=== PATIENT | male | born 1935 | race Caucasian/White ===

== ENCOUNTER 2021-12-22 12:44 | Inpatient (IN) | payer OTHER, SELFPAY ==
--- NOTE | ~2021-12-22 | FL_ITS ---
EXAMINATION: XR FL WITH IMAGES IN OR CLINICAL INFORMATION: Retrograde stent placement. COMPARISON: None TECHNIQUE: Fluoroscopy performed by Dr. Marc Fowler. Fluoroscopy Time: 50.8 seconds. Cumulative Dose: 14.7 mGy. Images: 4. FINDINGS: There is an area of narrowing at the left UPJ. Final image demonstrates a stent placement. FL/FL guidance in OR IMPRESSION: Fluoroscopy and spot films provided to Dr. Marc Fowler during retrograde stent placement. Please see his operative note for full details.
--- NOTE | ~2021-12-22 | XR_ITS ---
EXAMINATION: XR CHEST CLINICAL INFORMATION: Chest pain COMPARISON: 08/23/2014 TECHNIQUE: Frontal view of the chest was obtained. FINDINGS: Lung volumes are symmetric. Persistent streaky right upper lung opacity suggesting scarring. No acute consolidation is seen. No evidence of pneumothorax, pleural effusion, or pulmonary edema. The cardiomediastinal contour is unremarkable. No acute osseous findings are seen. XR/XR chest 1V IMPRESSION: No acute cardiopulmonary findings. Chronic streaky right upper lung opacity favoring scarring.
--- NOTE | ~2021-12-22 | CT_ITS ---
EXAMINATION: CT ABDOMEN AND PELVIS WITHOUT CONTRAST CLINICAL INFORMATION: Abdominal pain COMPARISON: 05/12/2016 TECHNIQUE: Multidetector volumetric imaging was performed from the lung bases through the pubic symphysis. Sagittal and coronal reformatted images were obtained on the technologist workstation. This CT examination was performed using dose optimization techniques as appropriate, variously including the following: *Automated exposure control *Adjustment of mA and/or kV according to patient size (this includes techniques or standardized protocols for targeted exams where dose is matched to indication/reason for exam; i.e. extremities or head) *Use of iterative reconstruction technique Total exam dose-length product 495 mGy-cm FINDINGS: The lack of intravenous contrast limits evaluation of the solid visceral organs including the liver, spleen, pancreas, and kidneys. LUNG BASES: There are areas of air trapping in the lung bases consistent with small airways disease. Normal heart size. Trace pericardial fluid. LIVER, GALLBLADDER, AND BILIARY TREE: Scattered hepatic cysts are again noted. No new focal lesion visible on noncontrast CT. No biliary ductal dilatation. Status post cholecystectomy. PANCREAS: Limited non-contrast evaluation is normal. No jena-pancreatic fluid. SPLEEN: Limited non-contrast evaluation is normal. ADRENAL GLANDS: Normal; no adrenal mass. KIDNEYS AND URETERS: Multiple bilateral water density renal cortical cysts are present. Most of these increased in size from the prior study 05/12/2016. For example a 3.8 cm cyst exophytic from the lateral cortex left mid kidney previously measured 3 cm. No right-sided calculi or hydronephrosis seen. 2 calcifications seen in the posterior left kidney, image 32/87 and 34/87 may be within the wall of the cyst rather than calculi. There is severe right hydroureteronephrosis with the dilated right ureter followed to a 5 mm obstructing left mid ureteral calculus at at the L4 level. GASTROINTESTINAL TRACT: Stomach and small bowel are nondilated. Normal appendix. As seen on the prior study, there is wall thickening throughout the rectosigmoid colon with subtle peripheral fluid and fat stranding. The right colon, left colon, and transverse colon are normal in appearance. ABDOMINAL WALL: Fat-containing bilateral inguinal hernias, left greater than right. LYMPH NODES: No pathologically enlarged lymph nodes in the abdomen or pelvis. VASCULAR: Circumferential calcified atherosclerotic changes of the normal caliber aorta. BLADDER: Bladder collapsed with circumferential wall thickening likely due to underdistention. PELVIC VISCERA: Mild prostatomegaly. Seminal vesicles are symmetric. OSSEOUS STRUCTURES: No acute or suspicious osseous abnormalities. CT/CT abdomen pelvis wo IV con IMPRESSION: 5 mm left mid ureteral calculus results in severe left hydroureteronephrosis. There was an obstructing left mid ureteral calculus resulting in hydroureteronephrosis on the prior study from 05/12/2016; presumably that stone passed or was removed. Again seen is wall thickening of the rectosigmoid colon with subtle adjacent fat stranding, consistent with colitis. This was also present on the prior study from 2016. Its unclear if this finding is recurrent or chronic.
[2021-12-22 12:54] VITALS: BP 132/82; PULSE 76; O2SAT 97
--- NOTE | 2021-12-22 12:56 | ECG_ITS ---
Test Reason : WEAKNESS Blood Pressure : / mmHG Vent. Rate : 079 BPM Atrial Rate : 079 BPM P-R Int : 144 ms QRS Dur : 060 ms QT Int : 370 ms P-R-T Axes : 062 036 065 degrees QTc Int : 424 ms Poor data quality Normal sinus rhythm with frequent Premature ventricular complexes Abnormal ECG When compared with ECG of 12-MAY-2016 12:45, Premature ventricular complexes are now Present Referred By: Cristobal Alejandra Electronically Signed By:CHRISTIANO ELISE MD
--- NOTE | 2021-12-22 13:07 | ED_ITS ---
HPI - General Adult General Chief complaint: General Medical Stated complaint: weakness Time Seen by Provider: 12/22/21 12:54 Source: patient and EMS Mode of arrival: EMS History of Present Illness HPI narrative: 85 yo male presented with c/o dysuria,weakness.Pt has hx of HTN and COPD, no fever no vomiting. I spoke with the son in law and he tells me that pt was at [facility] and became weak they the call an ambulance.Son in law tells me that the pt has dementia Onset (ago): day(s) (1) Radiation: non-radiation Severity: mild Quality: burning Pain Consistency: constant Relieving factors: none Exacerbating factors: none Related Data Allergies Allergy/AdvReac Type Severity Reaction Status Date / Time No Known Allergies Allergy Unverified 11/10/19 16:53 Review of Systems Cardiovascular: Cardiovascular: Denies chest pain Gastrointestinal: Gastrointestinal: Denies abdominal pain, Denies nausea and Denies vomiting Neurologic: Reports system reviewed and no additional complaints, except as documented PMFSH Past Medical History Attestation statement: The following information was validated with the patient. Social History Social History Advance Directives: Yes Advance Directives Information Provided: Yes Advance Directives on File: No Physical Exam ED Vital Signs: Vital Signs - 24 hr 12/22/21 13:10 12/22/21 14:42 Temperature 98.2 F Pulse Rate 83 Respiratory Rate 18 18 Blood Pressure 102/49 L Pulse Oximetry 94 Oxygen Delivery Method Room Air BMI result Body Mass Index 27.4 Const General: cooperative Nutritional Appearance: well nourished [facility] Head: Yes normal to inspection Ears: external ears normal Face and sinus: Yes normal facial exam Mouth: Normal oral and palatal mucosa present Eyes Conjunctivae: conjunctivae normal Neck Neck: Yes normal visual inspection, Yes full ROM and Yes no lymphadenopathy Chest Chest palpation & inspection: normal inspection of the chest Resp Effort & Inspection: normal respiratory effort Auscultation: clear to auscultation bilaterally Cardio Jugular venous distension: no JVD Rate: regular rate Rhythm: regular rhythm GI Inspection: Yes normal to inspection Palpation (GI): Soft to palpation and nontender Skin General skin exam: no rashes or lesions noted, elasticity normal and turgor normal Course Reevaluation(s) Reevaluation #1: signed out to Dr Corado off shift now UA pending ,I anticipate admission because elevated WBC ,blood culture obtained,aB started,he is not septic afebrile,normotensive,no tachycardic,no tachypneic Time: 16:15 Procedures EJ/Peripheral Line Arm R: Additional Comments: Under US guided cannulated rt basilic with 18 mikhail catheter good flash good blood return Medical Decision Making Lab Data Result diagrams: 12/22/21 14:04 12/22/21 14:04 Labs: Lab Results 12/22/21 12/22/21 12/22/21 Range/Units 14:04 14:04 14:04 WBC 20.7 H (4.8-10.8) X10*3/uL RBC 5.21 (4.60-5.80) X10*6/uL Hgb 16.5 (14.0-18.0) g/dl Hct 50.3 (42.0-52.0) % MCV 96.5 (80.0-98.0) fL MCH 31.7 (27.0-33.0) pg MCHC 32.8 (31.0-36.0) g/dl RDW 12.7 (11.0-16.0) % Plt Count 279 (160-400) X10*3/uL MPV 10.1 (9.4-12.4) fL Immature Gran % (Auto) 0.7 H (0.0-0.4) % Neut % (Auto) 89.5 H (45-73) % Lymph % (Auto) 7.0 L (20-40) % [place] % (Auto) 1.6 L (2-11) % Eos % (Auto) 1.0 (0-4) % Baso % (Auto) 0.2 (0-2) % Lymph # (Auto) 1.5 (1.2-4.9) X10*3/uL [place] # (Auto) 0.3 (0.1-1.2) X10*3/uL Eos # (Auto) 0.2 (0.0-0.4) X10*3/uL Baso # (Auto) 0.1 (0.0-0.2) X10*3/uL Abs Immat Gran (auto) 0.14 H (0.00-0.03) X10*3/uL Absolute Neuts (auto) 18.6 H (2.0-8.3) x10*3/uL Absolute Nucleated RBC 0.000 (0.0-0.012) X10*3/uL Nucleated RBC % (auto) 0.0 (0.0-0.2) /100WBC PT 12.0 (10.0-13.1) SEC INR 1.0 (0.9-1.1) APTT 29.9 (26.0-36.4) SEC Sodium 142 (135-145) mmol/L Potassium 4.3 (3.3-5.1) mmol/L Chloride 103 (96-108) mmol/L Carbon Dioxide 23 (22-29) mmol/L Anion Gap 20 (12-20) BUN 23 H (9-16) mg/dL Creatinine 1.80 H (0.5-1.4) mg/dL Estim Creat Clear Calc 26.8 Estimated GFR 36 Random Glucose 159 H (60-115) mg/dL Calcium 10.0 (8.4-10.2) mg/dL Total Bilirubin 1.1 H (0.0-1.0) mg/dL AST 25 (5-37) U/L ALT 22 (0-40) U/L Alkaline Phosphatase 117 (39-117) U/L Troponin I High Sens (<3.5-35.0) ng/L Total Protein 8.2 H (6.5-8.0) g/dL Albumin 4.9 (3.5-5.0) g/dL Urine Color Urine Appearance Urine pH (5.0-9.0) Ur Specific [place] (1.005-1.025) Urine Protein (Neg-Trace) mg/dL Urine Glucose (UA) (Negative) mg/dL Urine Ketones (Negative) mg/dL Urine Blood (Negative) Urine Nitrite (Negative) Ur Leukocyte Esterase (Negative) COVID-19 ([place]) (Negative) COVID-19 Clin Com 12/22/21 12/22/21 12/22/21 Range/Units 14:04 14:04 15:54 WBC (4.8-10.8) X10*3/uL RBC (4.60-5.80) X10*6/uL Hgb (14.0-18.0) g/dl Hct (42.0-52.0) % MCV (80.0-98.0) fL MCH (27.0-33.0) pg MCHC (31.0-36.0) g/dl RDW (11.0-16.0) % Plt Count (160-400) X10*3/uL MPV (9.4-12.4) fL Immature Gran % (Auto) (0.0-0.4) % Neut % (Auto) (45-73) % Lymph % (Auto) (20-40) % [place] % (Auto) (2-11) % Eos % (Auto) (0-4) % Baso % (Auto) (0-2) % Lymph # (Auto) (1.2-4.9) X10*3/uL [place] # (Auto) (0.1-1.2) X10*3/uL Eos # (Auto) (0.0-0.4) X10*3/uL Baso # (Auto) (0.0-0.2) X10*3/uL Abs Immat Gran (auto) (0.00-0.03) X10*3/uL Absolute Neuts (auto) (2.0-8.3) x10*3/uL Absolute Nucleated RBC (0.0-0.012) X10*3/uL Nucleated RBC % (auto) (0.0-0.2) /100WBC PT (10.0-13.1) SEC INR (0.9-1.1) APTT (26.0-36.4) SEC Sodium (135-145) mmol/L Potassium (3.3-5.1) mmol/L Chloride (96-108) mmol/L Carbon Dioxide (22-29) mmol/L Anion Gap (12-20) BUN (9-16) mg/dL Creatinine (0.5-1.4) mg/dL Estim Creat Clear Calc Estimated GFR Random Glucose (60-115) mg/dL Calcium (8.4-10.2) mg/dL Total Bilirubin (0.0-1.0) mg/dL AST (5-37) U/L ALT (0-40) U/L Alkaline Phosphatase (39-117) U/L Troponin I High Sens 6.1 (<3.5-35.0) ng/L Total Protein (6.5-8.0) g/dL Albumin (3.5-5.0) g/dL Urine Color Brown A Urine Appearance Cloudy Urine pH 6.0 (5.0-9.0) Ur Specific [place] 1.015 (1.005-1.025) Urine Protein 100 (2+) H (Neg-Trace) mg/dL Urine Glucose (UA) Negative (Negative) mg/dL Urine Ketones Trace (Negative) mg/dL Urine Blood Moderate (2+) H (Negative) Urine Nitrite Negative (Negative) Ur Leukocyte Esterase Small (1+) H (Negative) COVID-19 ([place]) Negative (Negative) COVID-19 Clin Com See Note Discharge Plan Discharge Clinical Impression: Weakness, Leukocytosis Patient Disposition: Still a Patient
[2021-12-22 13:10] VITALS: RESP 18; BMI 27.4
--- NOTE | 2021-12-22 13:20 | PC.NURSE ---
Pt yoruba speaking. Upon arrival requesting to use bathroom. Incontinent of urine. On commode having large bowel movement of loose stools.
[2021-12-22] MEDS: 0.9 % Sodium Chloride 1,000 ML 999 ML IVCONT ×2 (14:07→16:04)
[2021-12-22 14:14] LABS: MANUAL DIFF FLAG NO
[2021-12-22 14:15] LABS: Basophils Absolute Auto 0.1 X10*3/uL (0.0-0.2); Basophils Percent Auto 0.2 % (0-2); Eosinophils Absolute Auto 0.2 X10*3/uL (0.0-0.4); Hematocrit 50.3 % (42.0-52.0); Hemoglobin 16.5 g/dl (14.0-18.0); Imm Gran Abs Auto 0.14 X10*3/uL (0.00-0.03); Imm Gran Pct Auto 0.7 % (0.0-0.4); Lymphocytes Absolute Auto 1.5 X10*3/uL (1.2-4.9); Mean Corpuscular HGB Conc 32.8 g/dl (31.0-36.0); Mean Corpuscular Hemoglobin 31.7 pg (27.0-33.0); Mean Corpuscular Volume 96.5 fL (80.0-98.0); Mean Platelet Volume 10.1 fL (9.4-12.4); Monocytes Absolute Auto 0.3 X10*3/uL (0.1-1.2); Monocytes Percent Auto 1.6 % (2-11); Neutrophils Absolute Auto 18.6 x10*3/uL (2.0-8.3); Neutrophils Percent Auto 89.5 % (45-73); Platelet Count 279 X10*3/uL (160-400); Red Blood Count 5.21 X10*6/uL (4.60-5.80); Red Cell Distribution Width 12.7 % (11.0-16.0); White Blood Count 20.7 X10*3/uL (4.8-10.8)
[2021-12-22 14:23] LABS: Partial Thromboplastin Time 29.9 SEC (26.0-36.4)
[2021-12-22 14:28] LABS: COVID-19 Test Negative (Negative); IDNOW Serial# 16C4AD1C
[2021-12-22 14:36] LABS: Alanine Aminotransferase 22 U/L (0-40); Albumin Level 4.9 g/dL (3.5-5.0); Alkaline Phosphatase 117 U/L (39-117); Anion Gap 20 (12-20); Aspartate Amino Transferase 25 U/L (5-37); Bilirubin Total 1.1 mg/dL (0.0-1.0); Blood Urea Nitrogen 23 mg/dL (9-16); Carbon Dioxide 23 mmol/L (22-29); Chloride 103 mmol/L (96-108); Creatinine Clr Calc Pharmacy 26.8; Estimated Glomerular Filt Rate 36; Glucose Random 159 mg/dL (60-115); Potassium 4.3 mmol/L (3.3-5.1); Sodium 142 mmol/L (135-145); Total Protein 8.2 g/dL (6.5-8.0)
[2021-12-22 14:42] VITALS: BP 102/49; PULSE 83; RESP 18; TEMP 36.8; O2SAT 94
[2021-12-22 14:42] LABS: Troponin-I High Sensitivity 6.1 ng/L (<3.5-35.0)
[2021-12-22 16:05] LABS: Appearance Urine Cloudy; Glucose Urine UA Negative (Negative); Leukocyte Esterase Urine Small (1+) (Negative); Nitrite Urine Negative (Negative); Specific Gravity - Urine 1.015 (1.005-1.025); UMIC TRIGGER UACC YES; Urine Blood Moderate (2+) (Negative); Urine Ketones Trace mg/dL (Negative); Urine Protein 100 (2+) mg/dL (Neg-Trace)
[2021-12-22 16:10] LABS: Color Urine Brown
[2021-12-22 16:18] VITALS: BP 128/57; PULSE 80; RESP 20; TEMP 37; O2SAT 95
[2021-12-22 16:20] LABS: Bacteria Urine None Seen (None Seen); RBC Urine >20 /HPF (0-2); Squamous Epithelial Cell Urine 0-2 /HPF (0-2); UACC Culture Trigger YES
--- NOTE | 2021-12-22 16:25 | PC.NURSE ---
Pt continues to be incontinent of stool. Second liter hung, blood cultures and lactic acid obtained. Pt placed on the monitor NSR at 75. Urine sample obtained via straight catheter. Urine dark ish colored. Daughter at bedside
[2021-12-22 16:30] LABS: Lactic Acid 1.5 mmol/L (0.5-2.0)
--- NOTE | 2021-12-22 17:16 | P.HPHOSP_ITS ---
History of Present Illness Date of Service: 12/22/21 Chief Complaint: weakness 85M with PMH advanced alzheimer's dementia, copd, HTN, nephrolithiasis, chronic diastolic chf, presented with weakness. at baseline, patient is dependent in most ADLs, poor memory and insight. daughter states patient was at baseline AM of admission, then later on during the day he was noticed to be fatigued and weak appearing, visiting nurse reported low BP (not quantified). in ED patient's sBP 102. noted to have ESTUARDO, leukocytosis, positive UA, and CT abd showed 5mm left ureteral stone with hydro. patient denies pain, fever, chills. Review of Systems Review of Systems: Constitutional: Denies fever, denies Chills Eyes: denies blurry vision ENT: denies sore throat CVS: denies chest pain Respiratory: Denies dyspnea GI: no abdominal pain : denies dysuria MSK: denies neck pain Skin: denies rash Neuro: denies specific motor weakness Psych: denies suicidal ideation Endocrine: denies heat/cold intolerance Hematologic: denies easy bleeding Allergy: denies hives [facility] Medical History Alzheimer's dementia Chronic diastolic CHF (congestive heart failure) COPD (chronic obstructive pulmonary disease) History of CVA (cerebrovascular accident) Hypertension Nephrolithiasis Family History Other No family history of cardiac disease Surgical History S/P cholecystectomy Social History (Updated 12/22/21 @ 17:20 by Dominick Santos MD) Alcohol intake: never Patient Tobacco Use Status: Former Tobacco user Use of substances other than those prescribed or required for medical reasons: No Advance Directives: Yes Advance Directives Information Provided: Yes Advance Directives on File: No Meds Allergies Allergy/AdvReac Type Severity Reaction Status Date / Time No Known Allergies Allergy Unverified 11/10/19 16:53 Active Medications: Current Medications Ceftriaxone Sodium 1 gm/ (Sodium Chloride) 50 mls @ 100 mls/hr IV Q24H [facility] Lactated Ringer's (Lr) 1,000 mls @ 80 mls/hr IVCONT .[id number] [facility] Pharmacy Consult (Consult Rx Perform Med Rec) 1 each MISCELLANE ONCE PRN PRN Reason: Consult order Physical Exam Vital Signs and Narrative: Vital Signs: Last Vital Signs Temp 98.6 F 12/22/21 16:18 Pulse 80 12/22/21 16:18 Resp 20 12/22/21 16:18 BP 128/57 L 12/22/21 16:18 Pulse Ox 95 12/22/21 16:18 O2 Del Method 12/22/21 16:18 BMI result Body Mass Index 27.4 General: no acute distress, frail appearing HEENT: atraumatic Neck: normal to visual inspection CVS: S1, S2, RRR Resp: CTA bilateral Chest: non tender GI: soft, non tender, non distended : no CVA tenderness Skin: no rashes Extremities: no edema Neuro: Oriented X1, grossly intact Psych: cooperative, impaired insight Results Labs CBC and Chem 7: 12/22/21 14:04 12/22/21 14:04 Labs: Laboratory Results - last 24 hr 12/22/21 12/22/21 12/22/21 14:04 14:04 14:04 MCV 96.5 MCH 31.7 MCHC 32.8 RDW 12.7 Plt Count 279 MPV 10.1 Immature Gran % (Auto) 0.7 H Neut % (Auto) 89.5 H Lymph % (Auto) 7.0 L [place] % (Auto) 1.6 L Eos % (Auto) 1.0 Baso % (Auto) 0.2 Lymph # (Auto) 1.5 [place] # (Auto) 0.3 Eos # (Auto) 0.2 Baso # (Auto) 0.1 Abs Immat Gran (auto) 0.14 H Absolute Neuts (auto) 18.6 H Absolute Nucleated RBC 0.000 Nucleated RBC % (auto) 0.0 PT 12.0 INR 1.0 APTT 29.9 Anion Gap 20 Estim Creat Clear Calc 26.8 Estimated GFR 36 Random Glucose 159 H Lactic Acid Calcium 10.0 Total Bilirubin 1.1 H AST 25 ALT 22 Alkaline Phosphatase 117 Troponin I High Sens Total Protein 8.2 H Albumin 4.9 Urine Color Urine Appearance Urine pH Ur Specific [place] Urine Protein Urine Glucose (UA) Urine Ketones Urine Blood Urine Nitrite Ur Leukocyte Esterase Urine RBC Urine WBC Ur Squamous Epith Cells Urine Bacteria Hyaline Casts COVID-19 ([place]) COVID-19 Clin Com 12/22/21 12/22/21 12/22/21 14:04 14:04 15:54 MCV MCH MCHC RDW Plt Count MPV Immature Gran % (Auto) Neut % (Auto) Lymph % (Auto) [place] % (Auto) Eos % (Auto) Baso % (Auto) Lymph # (Auto) [place] # (Auto) Eos # (Auto) Baso # (Auto) Abs Immat Gran (auto) Absolute Neuts (auto) Absolute Nucleated RBC Nucleated RBC % (auto) PT INR APTT Anion Gap Estim Creat Clear Calc Estimated GFR Random Glucose Lactic Acid Calcium Total Bilirubin AST ALT Alkaline Phosphatase Troponin I High Sens 6.1 Total Protein Albumin Urine Color Brown A Urine Appearance Cloudy Urine pH 6.0 Ur Specific [place] 1.015 Urine Protein 100 (2+) H Urine Glucose (UA) Negative Urine Ketones Trace Urine Blood Moderate (2+) H Urine Nitrite Negative Ur Leukocyte Esterase Small (1+) H Urine RBC >20 H Urine WBC 6-10 H Ur Squamous Epith Cells 0-2 Urine Bacteria None Seen Hyaline Casts - COVID-19 ([place]) Negative COVID-19 Clin Com See Note 12/22/21 16:11 MCV MCH MCHC RDW Plt Count MPV Immature Gran % (Auto) Neut % (Auto) Lymph % (Auto) [place] % (Auto) Eos % (Auto) Baso % (Auto) Lymph # (Auto) [place] # (Auto) Eos # (Auto) Baso # (Auto) Abs Immat Gran (auto) Absolute Neuts (auto) Absolute Nucleated RBC Nucleated RBC % (auto) PT INR APTT Anion Gap Estim Creat Clear Calc Estimated GFR Random Glucose Lactic Acid 1.5 Calcium Total Bilirubin AST ALT Alkaline Phosphatase Troponin I High Sens Total Protein Albumin Urine Color Urine Appearance Urine pH Ur Specific [place] Urine Protein Urine Glucose (UA) Urine Ketones Urine Blood Urine Nitrite Ur Leukocyte Esterase Urine RBC Urine WBC Ur Squamous Epith Cells Urine Bacteria Hyaline Casts COVID-19 ([place]) COVID-19 Clin Com Imaging Radiologist's Impressions: Impressions Abdomen/Pelvis CT 12/22/21 15:32 IMPRESSION: 5 mm left mid ureteral calculus results in severe left hydroureteronephrosis. There was an obstructing left mid ureteral calculus resulting in hydroureteronephrosis on the prior study from 05/12/2016; presumably that stone passed or was removed. Again seen is wall thickening of the rectosigmoid colon with subtle adjacent fat stranding, consistent with colitis. This was also present on the prior study from 2017. Its unclear if this finding is recurrent or chronic. Chest X-Ray 12/22/21 15:35 IMPRESSION: No acute cardiopulmonary findings. Chronic streaky right upper lung opacity favoring scarring. Assessment and Plan (1) Alzheimer's dementia: Status: Acute Plan 85M with PMH advanced alzheimer's dementia, copd, HTN, nephrolithiasis, chronic diastolic chf, presented with weakness found to have obstructing stone with ESTUARDO. obstructing left ureteral stone complicated by ESTUARDO IVF, npo after midnight for cystoscopy 12/23 ESTUARDO pre and post renal hold bp meds IVF monitor plan for cysto HTN hold meds for relative hypotension COPD stable advanced alzheimer's dementia at baseline chronic diastolic chf appears hypovolemic, cautious hydration dvt prophylaxis - heparin DNR/DNI patient With obstructing stone leading to acute kidney injury requiring IV fluids, with risk for decompensation due to advanced age, frailty, therefore expected to require at least 2 midnights in the hospital. Quality Stroke Does the patient have a stroke diagnosis?: No VTE Prior VTE?: No VTE Risk Level:: Medical - moderate - high VTE Device Contraindication: Treatment Not Indicated VTE Drug Contraindication: N/A - Med Ordered
[2021-12-22] MEDS: cefEPime HCl 2 GM in 0.9 % Sodium Chloride 50 ML IV (18:01)
--- NOTE | 2021-12-22 18:41 | PHA.MEDREC ---
Pharmacy Consult ? Medication Reconciliation Pharmacy has completed the medication reconciliation. Patient's daughter confirmed medications. Annika Villegas, JavierD
[2021-12-22] MEDS: Heparin Sodium,Porcine 5,000 UNIT/ML VIAL 5000 UNIT SUBCUT (18:56)
[2021-12-22] MEDS: Lactated Ringers 1,000 ML 80 ML IVCONT (20:27)
[2021-12-22 21:22] VITALS: BP 127/95; PULSE 77; RESP 16; TEMP 36.9; O2SAT 97
[2021-12-23] VITALS (13 sets, daily range): BP systolic 114–161; BP diastolic 51–104; PULSE 53–86; RESP 13–19; TEMP 36.2–37.8; O2SAT 94–99; BMI 22.8; BMI 49.9
--- NOTE | 2021-12-23 | ECG_ITS ---
Test Reason : postop Blood Pressure : / mmHG Vent. Rate : 081 BPM Atrial Rate : 081 BPM P-R Int : 152 ms QRS Dur : 064 ms QT Int : 382 ms P-R-T Axes : 063 050 056 degrees QTc Int : 443 ms Sinus rhythm with frequent Premature ventricular complexes in a pattern of bigeminy Nonspecific ST abnormality Abnormal ECG When compared with ECG of 22-DEC-2021 13:53, Premature ventricular complexes are now more frequent Referred By: Marisel Bedoya Electronically Signed By:CHRISTIANO ELISE MD
[2021-12-23] MEDS: 0.9 % Sodium Chloride Flush 3 ML SYRINGE IVFLUSH ×3 (02:23→17:51)
[2021-12-23] MEDS: Heparin Sodium,Porcine 5,000 UNIT/ML VIAL 5000 UNIT SUBCUT ×2 (02:23→17:45)
--- NOTE | 2021-12-23 02:59 | PC.NURSE ---
Pts IV leaked on bed changed bed sheet, pad and Ashish. Emptied urinal.
--- NOTE | 2021-12-23 03:48 | PC.NURSE ---
Called report to [facility]
[2021-12-23] MEDS: Lactated Ringers 1,000 ML 80 ML IVCONT ×2 (04:37→17:44)
[2021-12-23] MEDS: cefTRIAXone sodium 1 GM in 0.9 % Sodium Chloride 50 ML IV (07:37)
[2021-12-23 07:46] LABS: Hematocrit 39.5 % (42.0-52.0); Hemoglobin 13.2 g/dl (14.0-18.0); Mean Corpuscular HGB Conc 33.4 g/dl (31.0-36.0); Mean Corpuscular Volume 95.6 fL (80.0-98.0); Mean Platelet Volume 10.2 fL (9.4-12.4); Platelet Count 193 X10*3/uL (160-400); Red Blood Count 4.13 X10*6/uL (4.60-5.80); Red Cell Distribution Width 12.7 % (11.0-16.0); White Blood Count 12.9 X10*3/uL (4.8-10.8)
[2021-12-23 08:01] LABS: Anion Gap 11 (12-20); Blood Urea Nitrogen 18 mg/dL (9-16); Calcium 8.8 mg/dL (8.4-10.2); Carbon Dioxide 24 mmol/L (22-29); Chloride 108 mmol/L (96-108); Creatinine Clr Calc Pharmacy 43.1; Estimated Glomerular Filt Rate > 60; Glucose Fasting 89 mg/dL (60-99); Potassium 4.1 mmol/L (3.3-5.1); Sodium 139 mmol/L (135-145)
[2021-12-23] MEDS: amLODIPine Besylate 10 MG TABLET PO (08:50)
--- NOTE | 2021-12-23 09:56 | HO.PM.IMPN ---
Subjective Subjective Date of Service: 12/23/21 Interval History: cc: weakness interval history: a bit better Cardiovascular Cardiovascular: Reports no additional cardiovascular complaints Respiratory Respiratory: Reports no additional respiratory complaints Physical Exam Vital Signs: Vital Signs: Last Vital Signs Temp 99.1 F 12/23/21 08:00 Pulse 78 12/23/21 08:00 Resp 16 12/23/21 08:00 BP 149/72 H 12/23/21 08:00 Pulse Ox 96 12/23/21 08:00 O2 Del Method 12/23/21 08:00 BMI result Body Mass Index 22.8 General: AO X 1, no acute distress Resp: CTA bilateral, no accessory muscles used CVS: S1,S2,RRR GI: soft, non tender, non distended Neuro: motor grossly intact, alert Psych: appropriate affect, impaired insight Objective Data Active Medications Acetaminophen (Acetaminophen 325 Mg Tablet) 650 mg PO Q6H PRN PRN Reason: Pain, Mild (Pain Scale 1-3) Amlodipine Besylate (Amlodipine Besylate 10 Mg Tablet) 10 mg PO DAILY REPLACED BY [facility]; Protocol Last Admin: 12/23/21 08:50 Dose: 10 mg Documented By: CHRISTINA Heparin Sodium (Porcine) (Heparin Sodium,Porcine 5,000 Unit/Ml Vial) 5,000 unit SUBCUT Q8H REPLACED BY [facility] Last Admin: 12/23/21 08:49 Dose: Not Given Documented By: CHRISTINA Non-Admin Reason: preop Ceftriaxone Sodium 1 gm/ (Sodium Chloride) 50 mls @ 100 mls/hr IV Q24H REPLACED BY [facility] Last Infusion: 12/23/21 08:53 Dose: 0 mls/hr Documented By: CHRISTINA Lactated Ringer's (Lr) 1,000 mls @ 80 mls/hr IVCONT .[id number] REPLACED BY [facility] Last Admin: 12/23/21 04:37 Dose: 80 mls/hr Documented By: SHAMA Pharmacy Consult (Consult Rx Perform Med Rec) 1 each MISCELLANE ONCE PRN PRN Reason: Consult order Sodium Chloride (0.9 % Sodium Chloride Flush 3 Ml Syringe) 3 ml IVFLUSH QSHIFT REPLACED BY [facility] Last Admin: 12/23/21 07:38 Dose: 3 ml Documented By: CHRISTINA Labs CBC & Chem 7: 12/23/21 07:35 12/23/21 07:35 Labs: Laboratory Results - last 24 hr 12/22/21 12/22/21 12/22/21 14:04 14:04 14:04 MCV 96.5 MCH 31.7 MCHC 32.8 RDW 12.7 Plt Count 279 MPV 10.1 Immature Gran % (Auto) 0.7 H Neut % (Auto) 89.5 H Lymph % (Auto) 7.0 L [place] % (Auto) 1.6 L Eos % (Auto) 1.0 Baso % (Auto) 0.2 Lymph # (Auto) 1.5 [place] # (Auto) 0.3 Eos # (Auto) 0.2 Baso # (Auto) 0.1 Abs Immat Gran (auto) 0.14 H Absolute Neuts (auto) 18.6 H Absolute Nucleated RBC 0.000 Nucleated RBC % (auto) 0.0 PT 12.0 INR 1.0 APTT 29.9 Anion Gap 20 Estim Creat Clear Calc 26.8 Estimated GFR 36 Random Glucose 159 H Fasting Glucose Lactic Acid Calcium 10.0 Total Bilirubin 1.1 H AST 25 ALT 22 Alkaline Phosphatase 117 Troponin I High Sens Total Protein 8.2 H Albumin 4.9 Urine Color Urine Appearance Urine pH Ur Specific [place] Urine Protein Urine Glucose (UA) Urine Ketones Urine Blood Urine Nitrite Ur Leukocyte Esterase Urine RBC Urine WBC Ur Squamous Epith Cells Urine Bacteria Hyaline Casts COVID-19 ([place]) COVID-19 Clin Com 12/22/21 12/22/21 12/22/21 14:04 14:04 15:54 MCV MCH MCHC RDW Plt Count MPV Immature Gran % (Auto) Neut % (Auto) Lymph % (Auto) [place] % (Auto) Eos % (Auto) Baso % (Auto) Lymph # (Auto) [place] # (Auto) Eos # (Auto) Baso # (Auto) Abs Immat Gran (auto) Absolute Neuts (auto) Absolute Nucleated RBC Nucleated RBC % (auto) PT INR APTT Anion Gap Estim Creat Clear Calc Estimated GFR Random Glucose Fasting Glucose Lactic Acid Calcium Total Bilirubin AST ALT Alkaline Phosphatase Troponin I High Sens 6.1 Total Protein Albumin Urine Color Brown A Urine Appearance Cloudy Urine pH 6.0 Ur Specific [place] 1.015 Urine Protein 100 (2+) H Urine Glucose (UA) Negative Urine Ketones Trace Urine Blood Moderate (2+) H Urine Nitrite Negative Ur Leukocyte Esterase Small (1+) H Urine RBC >20 H Urine WBC 6-10 H Ur Squamous Epith Cells 0-2 Urine Bacteria None Seen Hyaline Casts 11-20 COVID-19 ([place]) Negative COVID-19 Clin Com See Note 12/22/21 12/23/21 12/23/21 16:11 07:35 07:35 MCV 95.6 MCH 32.0 MCHC 33.4 RDW 12.7 Plt Count 193 D MPV 10.2 Immature Gran % (Auto) Neut % (Auto) Lymph % (Auto) [place] % (Auto) Eos % (Auto) Baso % (Auto) Lymph # (Auto) [place] # (Auto) Eos # (Auto) Baso # (Auto) Abs Immat Gran (auto) Absolute Neuts (auto) Absolute Nucleated RBC 0.000 Nucleated RBC % (auto) 0.0 PT INR APTT Anion Gap 11 L Estim Creat Clear Calc 43.1 Estimated GFR > 60 Random Glucose Fasting Glucose 89 Lactic Acid 1.5 Calcium 8.8 D Total Bilirubin AST ALT Alkaline Phosphatase Troponin I High Sens Total Protein Albumin Urine Color Urine Appearance Urine pH Ur Specific [place] Urine Protein Urine Glucose (UA) Urine Ketones Urine Blood Urine Nitrite Ur Leukocyte Esterase Urine RBC Urine WBC Ur Squamous Epith Cells Urine Bacteria Hyaline Casts COVID-19 ([place]) COVID-19 Clin Com Assessment and Plan (1) Alzheimer's dementia: Status: Acute Plan 85M with PMH advanced alzheimer's dementia, copd, HTN, nephrolithiasis, chronic diastolic chf, presented with weakness found to have obstructing stone with ESTUARDO. obstructing left ureteral stone complicated by ESTUARDO IVF, for cystoscopy today, 12/23 ESTUARDO pre and post renal improving continue IVF monitor plan for cysto HTN holding acei, will restart amlodipine COPD stable advanced alzheimer's dementia at baseline chronic diastolic chf appears hypovolemic, cautious hydration dvt prophylaxis - heparin DNR/DNI reason for continued hospitalization:ivf, cysto planned Quality Stroke Does the patient have a stroke diagnosis?: No VTE Prior VTE?: No VTE Risk Level:: Medical - moderate - high VTE Device Contraindication: Treatment Not Indicated VTE Drug Contraindication: N/A - Med Ordered
--- NOTE | 2021-12-23 11:26 | P.CNUR_ITS ---
History of Present Illness Consult details Consult date: 12/23/21 Narrative: Consulting complaint This is an 85-year-old Romanian-speaking male. Was brought to the emergency room after buddhist yesterday. Found to have UTI with leukocytosis. Had generalized weakness. Presenting WBC 20.7, creatinine 1.8 These have started to resolve with hydration and IV antibiotics Culture is pending. There is severe left hydroureteronephrosis with the dilated left ureter followed to a 5 mm obstructing left mid ureteral calculus at at the L4 level Recommend cystoscopy, left retrograde, left stent placement Discussed with family who are Romanian speakers Review of Systems Constitutional: Constitutional: Reports as per HPI and Reports no additional constitutional complaints Cardiovascular: Cardiovascular: Reports as per HPI and Reports no additional cardiovascular complaints Respiratory: Respiratory: Reports as per HPI and Reports no additional respiratory complaints Gastrointestinal: Gastrointestinal: Reports as per HPI and Reports no additional gastrointestinal complaints Genitourinary: Genitourinary: Reports as per HPI Musculoskeletal: Musculoskeletal: Reports no additional musculoskeletal complaints and Reports as per HPI Neurologic: Reports system reviewed and no additional complaints, except as documented and Reports as per HPI PMFSH Past Medical History Medical History Alzheimer's dementia Chronic diastolic CHF (congestive heart failure) COPD (chronic obstructive pulmonary disease) History of CVA (cerebrovascular accident) Hypertension Nephrolithiasis Family History Family History Other No family history of cardiac disease Surgical History Surgical History S/P cholecystectomy Social History Social History (Updated 12/22/21 @ 17:20 by Dominick Santos MD) Household Members: Family Housing: House Do you presently have visiting nurse or other home services: No Alcohol intake: never Patient Tobacco Use Status: Former Tobacco user Second Hand Smoke Exposure: No Advance Directives Date on File: 12/23/21 Meds Allergies Allergy/AdvReac Type Severity Reaction Status Date / Time No Known Allergies Allergy Verified 12/23/21 10:41 Active Medications: Current Medications Acetaminophen (Acetaminophen 325 Mg Tablet) 650 mg PO Q6H PRN PRN Reason: Pain, Mild (Pain Scale 1-3) Amlodipine Besylate (Amlodipine Besylate 10 Mg Tablet) 10 mg PO DAILY [facility]; Protocol Last Admin: 12/23/21 08:50 Dose: 10 mg Heparin Sodium (Porcine) (Heparin Sodium,Porcine 5,000 Unit/Ml Vial) 5,000 unit SUBCUT Q8H [facility] Last Admin: 12/23/21 08:49 Dose: Not Given Ceftriaxone Sodium 1 gm/ (Sodium Chloride) 50 mls @ 100 mls/hr IV Q24H [facility] Last Infusion: 12/23/21 08:53 Dose: Infused Lactated Ringer's (Lr) 1,000 mls @ 80 mls/hr IVCONT .[id number] [facility] Last Admin: 12/23/21 04:37 Dose: 80 mls/hr Pharmacy Consult (Consult Rx Perform Med Rec) 1 each MISCELLANE ONCE PRN PRN Reason: Consult order Sodium Chloride (0.9 % Sodium Chloride Flush 3 Ml Syringe) 3 ml IVFLUSH QSHIFT [facility] Last Admin: 12/23/21 07:38 Dose: 3 ml Home Medications Medication Instructions Recorded Confirmed Last Taken Type amlodipine 10 mg tablet 1 tab PO DAILY 12/22/21 12/22/21 12/21/21 History lisinopril 5 mg tablet 1 tab PO DAILY 12/22/21 12/22/21 12/21/21 History melatonin 5 mg tablet 1 tab PO BEDTIME PRN Sleep 12/22/21 12/22/21 Unknown Hist ory Physical Exam Vital Signs: Vital Signs: Last Vital Signs Temp 99.1 F 12/23/21 08:00 Pulse 78 12/23/21 08:00 Resp 16 12/23/21 08:00 BP 149/72 H 12/23/21 08:00 Pulse Ox 96 12/23/21 08:00 O2 Del Method 12/23/21 08:00 BMI result Body Mass Index 22.8 Const: General: cooperative, healthy appearing, comfortable and no acute distress Orientation/consciousness: patient oriented x3 HEENT: Face and sinus: Yes normal facial exam Mouth: moist mucous membranes Neck: Neck: Yes normal visual inspection, Yes full ROM and Yes trachea midline Chest: Chest palpation & inspection: normal inspection of the chest Resp: Effort & Inspection: normal respiratory effort, able to speak in complet e sentences and no respiratory distress GI: Inspection: Yes normal to inspection Back/Spine/Pelvis: Cervical Spine: normal cervical lordosis Thoracic/Lumbar Spine: thoracic and lumbar spine normal to inspection Skin: General skin exam: no rashes or lesions noted Neuro: General: patient oriented x3, tone normal and moves all extremities Extrem: General: Yes normal to inspection and Yes capillary refill normal Results Labs Result diagrams: 12/23/21 07:35 12/23/21 07:35 Labs: Abnormal lab results 12/22/21 12/22/21 12/22/21 Range/Units 14:04 14:04 15:54 WBC 20.7 H (4.8-10.8) X10*3/uL RBC (4.60-5.80) X10*6/uL Hgb (14.0-18.0) g/dl Hct (42.0-52.0) % Immature Gran % (Auto) 0.7 H (0.0-0.4) % Neut % (Auto) 89.5 H (45-73) % Lymph % (Auto) 7.0 L (20-40) % [place] % (Auto) 1.6 L (2-11) % Abs Immat Gran (auto) 0.14 H (0.00-0.03) X10*3/uL Absolute Neuts (auto) 18.6 H (2.0-8.3) x10*3/uL Anion Gap (12-20) BUN 23 H (9-16) mg/dL Creatinine 1.80 H (0.5-1.4) mg/dL Random Glucose 159 H (60-115) mg/dL Total Bilirubin 1.1 H (0.0-1.0) mg/dL Total Protein 8.2 H (6.5-8.0) g/dL Urine Color Brown A Urine Protein 100 (2+) H (Neg-Trace) mg/dL Urine Blood Moderate (2+) H (Negative) Ur Leukocyte Esterase Small (1+) H (Negative) Urine RBC >20 H (0-2) /HPF Urine WBC 6-10 H (0-5) /HPF 12/23/21 12/23/21 Range/Units 07:35 07:35 WBC 12.9 H (4.8-10.8) X10*3/uL RBC 4.13 L D (4.60-5.80) X10*6/uL Hgb 13.2 L (14.0-18.0) g/dl Hct 39.5 L D (42.0-52.0) % Immature Gran % (Auto) (0.0-0.4) % Neut % (Auto) (45-73) % Lymph % (Auto) (20-40) % [place] % (Auto) (2-11) % Abs Immat Gran (auto) (0.00-0.03) X10*3/uL Absolute Neuts (auto) (2.0-8.3) x10*3/uL Anion Gap 11 L (12-20) BUN 18 H (9-16) mg/dL Creatinine (0.5-1.4) mg/dL Random Glucose (60-115) mg/dL Total Bilirubin (0.0-1.0) mg/dL Total Protein (6.5-8.0) g/dL Urine Color Urine Protein (Neg-Trace) mg/dL Urine Blood (Negative) Ur Leukocyte Esterase (Negative) Urine RBC (0-2) /HPF Urine WBC (0-5) /HPF Short CBC 12/22/21 12/23/21 Range/Units 14:04 07:35 WBC 20.7 H 12.9 H (4.8-10.8) X10*3/uL Hgb 16.5 13.2 L (14.0-18.0) g/dl Hct 50.3 39.5 L D (42.0-52.0) % Plt Count 279 193 D (160-400) X10*3/uL BMP 12/22/21 12/23/21 14:04 07:35 Sodium 142 139 Potassium 4.3 4.1 Chloride 103 108 Carbon Dioxide 23 24 BUN 23 H 18 H Creatinine 1.80 H 1.03 Calcium 10.0 8.8 D Liver Function 12/22/21 Range/Units 14:04 Total Bilirubin 1.1 H (0.0-1.0) mg/dL AST 25 (5-37) U/L ALT 22 (0-40) U/L Alkaline Phosphatase 117 (39-117) U/L Albumin 4.9 (3.5-5.0) g/dL Urine 12/22/21 Range/Units 15:54 Urine Color Brown A Urine Appearance Cloudy Urine pH 6.0 (5.0-9.0) Ur Specific [place] 1.015 (1.005-1.025) Urine Protein 100 (2+) H (Neg-Trace) mg/dL Urine Glucose (UA) Negative (Negative) mg/dL All other labs normal. Assessment and Plan (1) Hydronephrosis concurrent with and due to calculi of kidney and ureter: Status: Acute Plan Risks, benefits and alternatives to therapy were discussed. These include but are not limited to infection, bleeding, damage to local organs and tissues, need for further interventions. Anesthetic risks regarding cardiac arrhythmia, blood clots, and potential mortality were discussed. The patient understands the typical recovery time and the outpatient nature of the procedure. After consideration of these risks the patient gives full informed consent and they wish to move ahead with the procedure. Cystoscopy, left retrograde, left stent placement Procedures Date of Service Date of Service: 12/23/21
--- NOTE | 2021-12-23 14:10 | HO.ANESPROP2 ---
[facility] Active Problems Active Problems: All Active Problems (Updated 12/23/21 @ 11:32 by Marc Fowler MD) Hydronephrosis concurrent with and due to calculi of kidney and ureter (Acute) Alzheimer's dementia (Acute) Chronic diastolic CHF (congestive heart failure) (Acute) Nephrolithiasis (Acute) COPD (chronic obstructive pulmonary disease) (Acute) Hypertension (Acute) Weakness (Acute) Leukocytosis (Acute) Past Medical History Medical History Alzheimer's dementia Chronic diastolic CHF (congestive heart failure) COPD (chronic obstructive pulmonary disease) History of CVA (cerebrovascular accident) Hypertension Nephrolithiasis Family History Family History Other No family history of cardiac disease Family history of problems with anesthesia: No Surgical History Surgical History S/P cholecystectomy History of Problems with Anesthesia: No Social History Social History (Updated 12/22/21 @ 17:20 by Dominick Santos MD) Household Members: Family Housing: House Do you presently have visiting nurse or other home services: No Alcohol intake: never Patient Tobacco Use Status: Former Tobacco user Second Hand Smoke Exposure: No Advance Directives Date on File: 12/23/21 Meds Allergies Allergy/AdvReac Type Severity Reaction Status Date / Time No Known Allergies Allergy Verified 12/23/21 10:41 Active Medications: Current Medications Acetaminophen (Acetaminophen 325 Mg Tablet) 650 mg PO Q6H PRN PRN Reason: Pain, Mild (Pain Scale 1-3) Amlodipine Besylate (Amlodipine Besylate 10 Mg Tablet) 10 mg PO DAILY [facility]; Protocol Last Admin: 12/23/21 08:50 Dose: 10 mg Heparin Sodium (Porcine) (Heparin Sodium,Porcine 5,000 Unit/Ml Vial) 5,000 unit SUBCUT Q8H [facility] Last Admin: 12/23/21 08:49 Dose: Not Given Ceftriaxone Sodium 1 gm/ (Sodium Chloride) 50 mls @ 100 mls/hr IV Q24H [facility] Last Infusion: 12/23/21 08:53 Dose: Infused Lactated Ringer's (Lr) 1,000 mls @ 80 mls/hr IVCONT .[id number] [facility] Last Admin: 12/23/21 04:37 Dose: 80 mls/hr Lactated Ringer's (Lr) 1,000 mls @ 50 mls/hr IVCONT .Q20H [facility] Pharmacy Consult (Consult Rx Perform Med Rec) 1 each MISCELLANE ONCE PRN PRN Reason: Consult order Sodium Chloride (0.9 % Sodium Chloride Flush 3 Ml Syringe) 3 ml IVFLUSH QSHIFT [facility] Last Admin: 12/23/21 07:38 Dose: 3 ml Home Medications Medication Instructions Recorded Confirmed Last Taken Type amlodipine 10 mg tablet 1 tab PO DAILY 12/22/21 12/22/21 12/21/21 History lisinopril 5 mg tablet 1 tab PO DAILY 12/22/21 12/22/21 12/21/21 History melatonin 5 mg tablet 1 tab PO BEDTIME PRN Sleep 12/22/21 12/22/21 Unknown History Exam Exam Date and Time: December 23, 2021 1410 Height,Weight and Vital Signs: Height 5 ft 4 in Weight 132 kg Last Vital Signs Temp 100.1 F 12/23/21 12:57 Pulse 75 12/23/21 12:57 Resp 18 12/23/21 12:57 BP 137/62 12/23/21 12:57 Pulse Ox 95 12/23/21 12:57 O2 Del Method 12/23/21 12:57 Pertinent Lab Results Pertinent Lab Results: Laboratory Tests 12/22/21 12/22/21 12/22/21 14:04 14:04 14:04 WBC 20.7 H RBC 5.21 Hgb 16.5 Hct 50.3 MCV 96.5 MCH 31.7 MCHC 32.8 RDW 12.7 Plt Count 279 MPV 10.1 Immature Gran % (Auto) 0.7 H Neut % (Auto) 89.5 H Lymph % (Auto) 7.0 L [place] % (Auto) 1.6 L Eos % (Auto) 1.0 Baso % (Auto) 0.2 Lymph # (Auto) 1.5 [place] # (Auto) 0.3 Eos # (Auto) 0.2 Baso # (Auto) 0.1 Abs Immat Gran (auto) 0.14 H Absolute Neuts (auto) 18.6 H Absolute Nucleated RBC 0.000 Nucleated RBC % (auto) 0.0 PT 12.0 INR 1.0 APTT 29.9 Sodium 142 Potassium 4.3 Chloride 103 Carbon Dioxide 23 Anion Gap 20 BUN 23 H Creatinine 1.80 H Estim Creat Clear Calc 26.8 Estimated GFR 36 Random Glucose 159 H Fasting Glucose Lactic Acid Calcium 10.0 Total Bilirubin 1.1 H AST 25 ALT 22 Alkaline Phosphatase 117 Troponin I High Sens Total Protein 8.2 H Albumin 4.9 Urine Color Urine Appearance Urine pH Ur Specific [place] Urine Protein Urine Glucose (UA) Urine Ketones Urine Blood Urine Nitrite Ur Leukocyte Esterase Urine RBC Urine WBC Ur Squamous Epith Cells Urine Bacteria Hyaline Casts COVID-19 ([place]) COVID-19 Clin Com 12/22/21 12/22/21 12/22/21 14:04 14:04 15:54 WBC RBC Hgb Hct MCV MCH MCHC RDW Plt Count MPV Immature Gran % (Auto) Neut % (Auto) Lymph % (Auto) [place] % (Auto) Eos % (Auto) Baso % (Auto) Lymph # (Auto) [place] # (Auto) Eos # (Auto) Baso # (Auto) Abs Immat Gran (auto) Absolute Neuts (auto) Absolute Nucleated RBC Nucleated RBC % (auto) PT INR APTT Sodium Potassium Chloride Carbon Dioxide Anion Gap BUN Creatinine Estim Creat Clear Calc Estimated GFR Random Glucose Fasting Glucose Lactic Acid Calcium Total Bilirubin AST ALT Alkaline Phosphatase Troponin I High Sens 6.1 Total Protein Albumin Urine Color Brown A Urine Appearance Cloudy Urine pH 6.0 Ur Specific [place] 1.015 Urine Protein 100 (2+) H Urine Glucose (UA) Negative Urine Ketones Trace Urine Blood Moderate (2+) H Urine Nitrite Negative Ur Leukocyte Esterase Small (1+) H Urine RBC >20 H Urine WBC 6-10 H Ur Squamous Epith Cells 0-2 Urine Bacteria None Seen Hyaline Casts 11-20 COVID-19 ([place]) Negative COVID-19 Clin Com See Note 12/22/21 12/23/21 12/23/21 16:11 07:35 07:35 WBC 12.9 H RBC 4.13 L D Hgb 13.2 L Hct 39.5 L D MCV 95.6 MCH 32.0 MCHC 33.4 RDW 12.7 Plt Count 193 D MPV 10.2 Immature Gran % (Auto) Neut % (Auto) Lymph % (Auto) [place] % (Auto) Eos % (Auto) Baso % (Auto) Lymph # (Auto) [place] # (Auto) Eos # (Auto) Baso # (Auto) Abs Immat Gran (auto) Absolute Neuts (auto) Absolute Nucleated RBC 0.000 Nucleated RBC % (auto) 0.0 PT INR APTT Sodium 139 Potassium 4.1 Chloride 108 Carbon Dioxide 24 Anion Gap 11 L BUN 18 H Creatinine 1.03 Estim Creat Clear Calc 43.1 Estimated GFR > 60 Random Glucose Fasting Glucose 89 Lactic Acid 1.5 Calcium 8.8 D Total Bilirubin AST ALT Alkaline Phosphatase Troponin I High Sens Total Protein Albumin Urine Color Urine Appearance Urine pH Ur Specific [place] Urine Protein Urine Glucose (UA) Urine Ketones Urine Blood Urine Nitrite Ur Leukocyte Esterase Urine RBC Urine WBC Ur Squamous Epith Cells Urine Bacteria Hyaline Casts COVID-19 ([place]) COVID-19 Clin Com Airway Mallampati Class: II (Edentulous) TM Dist: >3cm Neck ROM: Full Heart: rrr Lungs: cta Assessment and Plan Assessment Anesthesia Assessment: Anesthesia Plan Discussed and Chart Reviewed Final Anesthetic Review Family History of Problems with Anesthesia: No History of Problems with Anesthesia: No NPO: Yes ASA Class: III Final Preanesthetic Review: No Changes in Pt Med Stat, Meds/Allgs Chart Reviewed and Consent Obtained/Reviewed Patient Risk: Intermediate Procedure Risk: Intermediate Anesthetic Plan Anesthetic Plan: GA Disposition: Standard PACU
--- NOTE | 2021-12-23 14:44 | MHC.SHP ---
Pre-Procedural Eval Section A Date of Service: 12/23/21 The patient is an INPATIENT: Yes Changes since office visit: No Cold of Flu in the past 2 weeks, No New Medical Problems, No Changes in Medication and No Patient answered all questions The History & Physical has been completed within 30 days and I have reviewed it.: Yes Section B Chief Complaint: ESTUARDO Renal Stone Details of Present Illness: Cystoscopy, left retrograde, left stent placement Relevant Social History: None Present Medications: see Short Stay Collaborative assessment Medical History: No relevant PMH History of Previous Operations: No relevant previous surgery Allergies: Allergies Allergy/AdvReac Type Severity Reaction Status Date / Time No Known Allergies Allergy Verified 12/23/21 10:41 Review of Systems Sugical H&P ROS: Negative: Constitution, Cardiovascular, Respiratory, Neurological, Psychiatric, Hem-Onc, Allergic/Immunologic, Gastrointestinal, Genitourinary, Musculoskeletal, Integumentary, Endocrine and Eyes/Ears/Nose/Throat Exam Surgical H&P Exam: Normal: HEENT, Normal: Heart, Normal: Lungs, Normal: Extremities, Normal: Abdomen, Normal: Skin and Normal: Neurological Plan Diagnosis/Plan: Unchanged (Cystoscopy, left retrograde, left stent placement) I have reviewed the history and physical and performed a pertinent physical examination on my patient. No changes have occurred unless specified.
--- NOTE | 2021-12-23 15:37 | W.PM.OPN ---
Operative Note Operative Note Date of Service: 12/23/21 Narrative: PreOperative Diagnosis:?impacted mid left ureteric stone with hydor Post Operative Diagnosis:?same Procedure: -? cystoscopy, left retrograde -? left ureteroscopy, laser lithotripsy -? left stent placement Surgeon:?Dr Marc Fowler Anesthesia:? General Indications for procedure: left midureteric impacted 6mm stone Procedure: After informed consent was verified patient was brought to the operating placed in supine position.? Anesthesia was administered per protocol.? Patient was placed in modified dorsal lithotomy position and prepped and draped in a sterile fashion.? Safety pause time-out and side of surgery confirmed.? Antibiotics confirmed. ?A 22 [place] cystoscope was inserted per urethra.? Bladder was normal in its entirety.? ? Both ureteric orifices were in normal position. The Left? ureteric orifice was cannulated? and a retrograde examination was performed.? filling defects seen in the mid ureteric point with proximal hydroureteronephrosis.? Attempt was made to place a Sensor guidewire.? Unable to pass.? Attempt was made to place a 0.35 angled Glidewire.? Unable to pass.? A decision was made to proceed with rigid ureteroscopy to try to enable wire placement. A semi rigid ureteral scope was placed up the left ureter.? The impacted stone was encountered.? Using a 372 micron laser fiber the stone was broken into small pieces.? The Sensor guidewire was placed.? The rigid ureteral scope was removed.? The Sensor wire was backloaded into the cystoscope A? 6 [place] by 24 cm? double-J stent was placed into the renal pelvis and bladder under a combination of fluoroscopy and direct visualization. The bladder was emptied.? The patient tolerated the procedure well and was extubated in the operating room, and transferred in stable condition to the recovery area. Pathology:? none Drains:? 6 [place] by 24 cm stone
[2021-12-23] MEDS: Phenazopyridine HCL 100 MG TABLET PO (18:12)
[2021-12-23] MEDS: Acetaminophen 325 MG TABLET 650 MG PO (18:29)
[2021-12-24] VITALS: BP 153/75; PULSE 76; RESP 16; TEMP 37.3; O2SAT 94
[2021-12-24] MEDS: 0.9 % Sodium Chloride Flush 3 ML SYRINGE IVFLUSH ×2 (00:36→08:17)
[2021-12-24] MEDS: Heparin Sodium,Porcine 5,000 UNIT/ML VIAL 5000 UNIT SUBCUT ×2 (01:29→08:06)
--- NOTE | 2021-12-24 03:05 | PC.NURSE ---
Patient is alert. Returned from procedure around 6pm. , family at bedside. Lactated Ringers infusing @80ml/hr to R AC 20g. Denied any pain. Tolerated only 2 cups of Jello in the PM. Tolerated all scheduled medications well
[2021-12-24 04:00] VITALS: BP 146/72; PULSE 85; RESP 14; TEMP 36.9; O2SAT 93
[2021-12-24] MEDS: traMADoL HCL 50 MG TABLET PO (05:44)
[2021-12-24 06:39] LABS: Hemoglobin 13.7 g/dl (14.0-18.0); Mean Corpuscular HGB Conc 33.4 g/dl (31.0-36.0); Mean Corpuscular Volume 95.8 fL (80.0-98.0); Mean Platelet Volume 10.6 fL (9.4-12.4); Platelet Count 192 X10*3/uL (160-400); Red Blood Count 4.28 X10*6/uL (4.60-5.80); Red Cell Distribution Width 12.5 % (11.0-16.0); White Blood Count 11.5 X10*3/uL (4.8-10.8)
[2021-12-24] MEDS: Lactated Ringers 1,000 ML 50 ML IVCONT (06:39)
[2021-12-24 07:10] LABS: Anion Gap 17 (12-20); Blood Urea Nitrogen 15 mg/dL (9-16); Calcium 8.8 mg/dL (8.4-10.2); Carbon Dioxide 21 mmol/L (22-29); Chloride 105 mmol/L (96-108); Creatinine Clr Calc Pharmacy 58.6; Estimated Glomerular Filt Rate > 60; Glucose Fasting 77 mg/dL (60-99); Potassium 4.2 mmol/L (3.3-5.1); Sodium 139 mmol/L (135-145)
[2021-12-24 07:58] VITALS: BP 162/70; PULSE 87; RESP 18; TEMP 37.1; O2SAT 95
[2021-12-24] MEDS: amLODIPine Besylate 10 MG TABLET PO (08:06)
[2021-12-24] MEDS: cefTRIAXone sodium 1 GM in 0.9 % Sodium Chloride 50 ML IV (08:07)
--- NOTE | 2021-12-24 09:29 | PM.DS ---
DS: Providers Provider Date of Service: 12/24/21 Date of admission: 12/22/21 17:15 Primary care physician: Unknown Physician Consults: 12/22/21 17:14 Consult to Urology Routine Consulting Provider: Marc Fowler Reason for consultation: obstructing stone DS: Diagnosis Discharge Diagnosis (1) Hydronephrosis concurrent with and due to calculi of kidney and ureter: Status: Acute DS: Summary Hospital Course Hospital Course: from initial hpi: Chief Complaint: weakness 85M with PMH advanced alzheimer's dementia, copd, HTN, nephrolithiasis, chronic diastolic chf, presented with weakness. at baseline, patient is dependent in most ADLs, poor memory and insight. daughter states patient was at baseline AM of admission, then later on during the day he was noticed to be fatigued and weak appearing, visiting nurse reported low BP (not quantified). in ED patient's sBP 102. noted to have ESTUARDO, leukocytosis, positive UA, and CT abd showed 5mm left ureteral stone with hydro. patient denies pain, fever, chills. hospital course: Patient was admitted for obstructing left ureteral stone complicated by acute kidney injury. He received IV fluids, as lisinopril was held, he underwent cystoscopy on 12/23 with stent placement. His ESTUARDO resolved. For his hypertension he was continued on amlodipine. On discharge he can restart his lisinopril. For COPD he was not in exacerbation. For his advanced Alzheimer's dementia he remained at baseline. Risks chronic diastolic CHF he was hypovolemic therefore received IV fluids. Patient is now feeling better will be discharged home. He should follow up with Urology as outpatient. Time Spent with Patient Time attestation: Total time spent providing and/or coordinating discharge services: Discharge coordination time: Greater than 30 minutes Quality: Safe Use of Opioids Does Pt have an Active Cancer Diagnosis on the Problem List?: No Quality: Stroke Does the patient have a stroke diagnosis?: No Physical Exam Vital Signs: Vital Signs: Last Vital Signs Temp 98.8 F 12/24/21 07:58 Pulse 87 12/24/21 07:58 Resp 18 12/24/21 07:58 BP 162/70 H 12/24/21 07:58 Pulse Ox 95 12/24/21 07:58 O2 Del Method 12/24/21 07:58 O2 Flow Rate 2 12/23/21 17:33 BMI result Body Mass Index 49.9 Const: General: cooperative, healthy appearing, comfortable and no acute distress Orientation/consciousness: patient oriented x3 HEENT: Face and sinus: Yes normal facial exam Mouth: moist mucous membranes Neck: Neck: Yes normal visual inspection, Yes full ROM and Yes trachea midline Chest: Chest palpation & inspection: normal inspection of the chest Resp: Effort & Inspection: normal respiratory effort, able to speak in complete sentences and no respiratory distress GI: Inspection: Yes normal to inspection Back/Spine/Pelvis: Cervical Spine: normal cervical lordosis Thoracic/Lumbar Spine: thoracic and lumbar spine normal to inspection Skin: General skin exam: no rashes or lesions noted Neuro: General: patient oriented x3, tone normal and moves all extremities Extrem: General: Yes normal to inspection and Yes capillary refill normal DS: Data Data Completed and Pending Labs on day of discharge: Laboratory Results - last 24 hr 12/24/21 12/24/21 05:50 05:50 WBC 11.5 H RBC 4.28 L Hgb 13.7 L Hct 41.0 L MCV 95.8 MCH 32.0 MCHC 33.4 RDW 12.5 Plt Count 192 MPV 10.6 Absolute Nucleated RBC 0.000 Nucleated RBC % (auto) 0.0 Sodium 139 Potassium 4.2 Chloride 105 Carbon Dioxide 21 L Anion Gap 17 BUN 15 Creatinine 1.13 Estim Creat Clear Calc 58.6 Estimated GFR > 60 Fasting Glucose 77 Calcium 8.8 Preliminary micro results at discharge 12/22/21 16:16 Blood Culture - Preliminary Blood - Venous No growth after 24 hours. 12/22/21 16:11 Blood Culture - Preliminary Blood - Venous No growth after 24 hours. Discharge Plan Discharge Anticipated Discharge Date/Time: 12/24/21 09:27 Patient Disposition: Home, Self-Care Discharge Diagnosis: estuardo, renal stone Referrals: Physician,Unknown J [Primary Care Provider] - 1 Week Discharge Medications: Continued amlodipine 10 mg tablet 1 tab PO DAILY lisinopril 5 mg tablet 1 tab PO DAILY melatonin 5 mg tablet 1 tab PO BEDTIME PRN (Reason: Sleep) Discharge Orders: Discharge Order (Routine); Ordered 12/24/21 Ordered By: Dominick Santos Diet: Advance to usual diet Activity on Discharge: As tolerated Stand Alone Forms: Patient Portal Discharge page Care Plan Goals: recovery Health Concerns: estuardo, renal stone Plan of Treatment: follow up Assessment: see above
[2021-12-24] MEDS: Lactated Ringers 1,000 ML 80 ML IVCONT (09:34)
--- NOTE | 2021-12-24 10:41 | HO.POSTANES ---
Post Anesthesia Evaluation Post Anesthesia Evaluation Vital Signs: Vital Signs Temp Pulse Resp BP Pulse Ox O2 Del Method 12/24/21 07:58 98.8 F 87 18 162/70 H 95 Room Air 12/24/21 04:00 98.5 F 85 14 146/72 H 93 Room Air 12/24/21 00:00 99.2 F 76 16 153/75 H 94 Room Air Anesthesia: General Mental Status: Awake Pain Control: Satisfactory Nausea/Vomiting: None Hydration: Adequate Anesthesia-Related Issues: No Anes. Related Issues
[2021-12-24 11:54] VITALS: BP 155/72; PULSE 92; RESP 16; TEMP 36.6; O2SAT 95
== END 2021-12-24 13:57 | disposition home or self-care (01) | DRG 660 ==
LOC: HO.ED 16:33 → HO.EDOVER 17:19 → HO.S3 12-23 03:20
PROVIDERS: Emergency Medicine; Urology; Admitting Provider Internal Medicine; Emergency Provider Emergency Medicine; Visit Provider Internal Medicine
PROC: 0T778DZ Dilation of Left Ureter with Intraluminal Device, Via Natural or Artificial Opening Endoscopic (ICD-10-PCS; principal; 2021-12-23 13:00)
DX: N13.6 Pyonephrosis (principal); I50.32 Chronic diastolic (congestive) heart failure; Z66 Do not resuscitate; I11.0 Hypertensive heart disease with heart failure; N17.9 Acute kidney failure, unspecified; G30.9 Alzheimer's disease, unspecified; F02.80 Dementia in other diseases classified elsewhere, unspecified severity, without behavioral disturbance, psychotic disturbance, mood disturbance, and anxiety; J44.9 Chronic obstructive pulmonary disease, unspecified; Z86.73 Personal history of transient ischemic attack (TIA), and cerebral infarction without residual deficits; Z20.822 Contact with and (suspected) exposure to COVID-19; Z79.899 Other long term (current) drug therapy
CPT/HCPCS: 36415; 71045; 74176; 80048; 80053; 81001; 83605; 84484; 85025; 85027; 85610; 85730; 87040; 87086; 87635; 93005; 96360; 96361; 99285; C1758; C1769; C2617; J0461; J0692; J0696; J1956; J3010; Q9967

== ENCOUNTER → 2022-01-15 10:45 | Outpatient (BNVA) | payer OTHER, SELFPAY | PROVIDERS: Visit Provider Urology | DX: Z48.816 Encounter for surgical aftercare following surgery on the genitourinary system (principal) | CPT/HCPCS: 52310; 99212 ==

== ENCOUNTER 2022-03-31 14:47 | Outpatient (REF) | payer OTHER, SELFPAY ==
--- NOTE | ~2022-03-31 | US_ITS ---
EXAMINATION: US RETROPERITONEAL LIMITED (RENAL ONLY) CLINICAL INFORMATION: Calculus of kidney. COMPARISON: CT abdomen and pelvis without contrast 12/22/2021 TECHNIQUE: Routine grayscale imaging of kidneys and bladder was performed. FINDINGS: RIGHT KIDNEY: 9.1 x 4.2 x 4.7 cm (SAG x AP x TRV). The kidney is normal in size, contour, and echogenicity. Renal cortical thickness is normal. No calculi or focal parenchymal lesions. No hydronephrosis. There is an anechoic cyst in lower pole laterally measuring 2.0 x 1.7 x 2.0 cm. LEFT KIDNEY: 8.4 x 3.8 x 3.8 cm (SAG x AP x TRV). The kidney is normal in size, contour, and echogenicity. Renal cortical thickness is normal. There are echogenic stones in lower pole measuring 0.7 x 0.5 x 0.4 cm, and 0.5 x 0.3 x 0.4 cm and 0.3 x 0.3 x 0.3 cm. There is moderate hydronephrosis. BLADDER: Right ureteral jet is seen. Left ureteral jet is not visualized. An obstructive ureteral stone cannot be excluded. US/US renal BI IMPRESSION: 1. Bilateral renal cysts. These cysts were noted on the previous CT exam. 2. Echogenic stones lower pole left kidney. There is moderate left hydronephrosis. An obstructive ureteral stone cannot be excluded. Recommend CT abdomen and pelvis without contrast.
== END 2022-03-31 14:48 | disposition home or self-care (01) ==
LOC: HO.US 14:47
PROVIDERS: Visit Provider Urology
DX: N13.2 Hydronephrosis with renal and ureteral calculous obstruction (principal)
CPT/HCPCS: 76775

== ENCOUNTER 2024-06-09 12:16 | Emergency (ER) | payer OTHER, SELFPAY ==
--- NOTE | ~2024-06-09 | CT_ITS ---
CLINICAL HISTORY: fall down [address] abdomen and pelvis with contrast Comparison: CT/REG/SR - CT ABDOMEN PELVIS WO IV CON - 12/22/21 15:12 EDT Findings: No consolidation or effusion. Findings at the level of the chest are reported separately. There is moderate atrophy of the left kidney. There is moderate hydronephrosis of the left kidney. There are parenchymal calcifications within the lower pole of the left kidney. There are multiple kidney cysts. There are multiple cysts within the liver. The spleen, pancreas and adrenal glands are unremarkable. There has been a prior cholecystectomy. There is colonic diverticulosis. No bowel edema or dilatation. Small left inguinal hernia containing fat. 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 Pelvic contents unremarkable. Normal appendix. No acute fracture. IMPRESSION: 1. No hemoperitoneum or abdominal organ injury. 2. 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 3. Moderate hydronephrosis of the left kidney. Moderate atrophy of the left kidney. This document has been electronically signed by: Coby Denson MD on 06/09/2024 18:51:22
--- NOTE | ~2024-06-09 | CT_ITS ---
EXAMINATION: CT HEAD WITHOUT CONTRAST CLINICAL INFORMATION: FALL COMPARISON: August 16, 2014. TECHNIQUE: Contiguous axial imaging was performed from the skull base to vertex without intravenous administration of contrast. This CT examination was performed using dose optimization techniques as appropriate, variously including the following: *Automated exposure control *Adjustment of mA and/or kV according to patient size (this includes techniques or standardized protocols for targeted exams where dose is matched to indication/reason for exam; i.e. extremities or head) *Use of iterative reconstruction technique DLP: 907 mGy-cm FINDINGS: Bony calvarium is intact. Skull base is intact. No acute intracranial hemorrhage, mass effect, midline shift, hydrocephalus or herniation. Jackson-white matter differentiation is normal. Sellar/so region demonstrated no gross masses or hemorrhage. Bilateral multifocal patchy and confluent white matter hypodensities involving centrum semiovale and campo radiata and likely jonathan. Multifocal old lacunar infarcts in the basal ganglia and extracapsular. Prominence of the extra-axial CSF spaces cerebral sulci and ventricles. Calcified plaques in the V4 segments of the vertebral arteries and cavernous supraclinoid segment both ICA. Edentulous, maxilla. Mucosal thickening without air-fluid levels in the paranasal sinuses. Tympanic cavities and mastoid cells are aerated. CT/CT head/brain wo IV con IMPRESSION: No acute fracture, bony calvarium. No acute intracranial hemorrhage. White matter disease likely related to small vessel occlusive disease. Global cerebral atrophy. Atherosclerosis disease, intracranial. Electronically signed by: Anton Ngo MD 06/09/2024 03:22 PM EDT
--- NOTE | ~2024-06-09 | CT_ITS ---
CLINICAL HISTORY: fall down [address] chest with contrast Comparison: CT/REG/SR - CT ABDOMEN PELVIS WO IV CON - 12/22/21 15:12 EDT Findings: The heart size is normal. The visualized thyroid and mediastinum are unremarkable. 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 Multiple areas of air trapping within the bilateral lungs. Small foci of atelectasis and/or scarring within the lingula and right middle lobe. No consolidation, pleural effusion or pneumothorax. Findings at the level of the abdomen are reported separately. Mild compression fracture at T11 without change. Mild compression fracture at T9, not previously evaluated. No visible fracture lines. No displaced fracture. IMPRESSION: There is a mild compression fracture at T9. This is felt to most likely represent a chronic fracture but an acute fracture is not excluded. This document has been electronically signed by: Coby Denson MD on 06/09/2024 19:00:56
--- NOTE | ~2024-06-09 | CT_ITS ---
EXAMINATION: CT CERVICAL SPINE WITHOUT CONTRAST CLINICAL INFORMATION: Status post fall. COMPARISON: None available. TECHNIQUE: Contiguous axial images through the cervical spine using 3 mm collimation with bone and soft tissue algorithm. Sagittal and coronal reformatted images acquired. This CT examination was performed using dose optimization techniques as appropriate, variously including the following: *Automated exposure control *Adjustment of mA and/or kV according to patient size (this includes techniques or standardized protocols for targeted exams where dose is matched to indication/reason for exam; i.e. extremities or head) *Use of iterative reconstruction technique DLP: 907 mGy centimeter. FINDINGS: Craniocervical junction is intact. Degenerative changes in the periodontal C1 region. Marginal osteophyte formation, subchondral cyst formation and endplate sclerosis and decreased intervertebral disc height C4 C7. No gross malalignment between the vertebral bodies or the facet joints. C1 is intact. C2 is intact. C3 is intact. C4 is intact. Left-sided facet joint hypertrophy. C5 is intact. Left-sided facet joint hypertrophy. C6 is intact. C7 is intact. No gross prevertebral compartment hematoma. Central spinal canal stenosis C4-5 and C5-6 on a multifactorial basis. Calcified plaques in the carotid bulbs and proximal ICAs, bilaterally. Multiple thick wall cystic lesions in the right upper lung lobe/saccular bronchiectasis. CT/CT cervical spine wo IV con IMPRESSION: Multilevel cervical spondylosis without acute fracture or trauma-related listhesis. Chronic lung abnormalities, thick-walled cystic lesions, right upper lung lobe/saccular bronchiectasis. Fleischner guidelines were followed. Electronically signed by: Anton Ngo MD 06/09/2024 03:47 PM EDT
[2024-06-09 12:20] VITALS: BP 136/76; PULSE 69; RESP 16; O2SAT 98; BMI 23.6
--- NOTE | 2024-06-09 12:32 | ED.GENADULT ---
HPI - General Adult General Chief complaint: Fall Stated complaint: Fall today, hit head Time Seen by Provider: 06/09/24 13:34 Source: patient and family Mode of arrival: ambulatory Limitations: no limitations History of Present Illness ED Provider: Ricky Rincon PA-C HPI narrative: 88 yo male with history of Alzheimer's dementia, HFpEF, COPD, HTN, kidney stones who presents to the ER from home for evaluation of an unwitnessed fall. Family reports early this morning he fell down a set of stairs, about 12 stairs. They heard him and went running to get him. He was awake and had a bruise on his head. He is not on blood thinners. He last fell 1 year ago. He intermittently wanders from the upstairs apartment to the downstairs apartment of the 2 family home his family is in. They called his PCP this morning who instructed him to come to the ER for further evaluation. He has not been complaining of any pain since the fall. He has been acting himself. No nausea or vomiting. He denies headache, neck pain, chest pain, SOB, abdominal pain or joint pain. He has 2 skin tears on his left arm. MD complaint: fall down stairs Onset (ago): hour(s) (12) Associated symptoms: denies other symptoms Treatments prior to arrival: none Related Data Home Medications ?Medication ?Instructions ?Recorded ?Confirmed melatonin 5 mg tablet 1 tab PO BEDTIME PRN Sleep 12/22/21 12/22/21 Previous Rx's ?Medication ?Instructions ?Recorded amlodipine 10 mg tablet 1 tab PO DAILY #30 tabs 12/24/21 lisinopril 5 mg tablet 1 tab PO DAILY #30 tabs 12/24/21 Allergies Allergy/AdvReac Type Severity Reaction Status Date / Time No Known Allergies Allergy Verified 06/09/24 12:22 Review of Systems Review of Systems: Yes all other systems are reviewed and are negative [facility] Past Medical History Medical History Alzheimer's dementia Chronic diastolic CHF (congestive heart failure) COPD (chronic obstructive pulmonary disease) History of CVA (cerebrovascular accident) Hypertension Nephrolithiasis Surgical History S/P cholecystectomy Family History Family History Other No family history of cardiac disease Social History Social History Household Members: Family Housing: House Do you presently have visiting nurse or other home services: No Alcohol intake: never Patient Tobacco Use Status: Former Tobacco user Second Hand Smoke Exposure: No Advance Directives Date on File: 12/23/21 Physical Exam ED Vital Signs: Vital Signs - 24 hr 06/09/24 12:20 06/09/24 16:01 06/09/24 19:03 Temperature 97.7 F 97.8 F Pulse Rate 69 64 63 Respiratory Rate 16 18 18 Blood Pressure 136/76 154/59 H 143/67 H Pulse Oximetry 98 96 97 Oxygen Delivery Method Room Air Room Air Room Air 06/09/24 20:11 06/09/24 20:50 Temperature 97.8 F 97.8 F Pulse Rate 70 70 Respiratory Rate 16 16 Blood Pressure 139/73 139/73 Pulse Oximetry 100 100 Oxygen Delivery Method Room Air Room Air BMI result Body Mass Index 23.6 Appearance: Alert elderly male laying on the stretcher. No acute distress. Head: normocephalic, large approx 6cm round ecchymotic area on the left Eyes: Pupils equal, round and reactive to light. ENT: Pharynx normal. No tonsillar swelling or exudate. Neck: Normal inspection. Neck supple. No midline tenderness. CVS: Normal heart rate and rhythm. Pulses normal. Respiratory: No respiratory distress. Breath sounds normal. Abdomen: Soft and nontender. +BS x4 Skin: Skin warm and dry. Normal skin color. Normal skin turgor. No rashes. Extremities: pelvis is stable. No lower extremity edema. No joint swelling. Left forearm and elbow with scattered areas of ecchymosis, 3cm irregularly shaped skin tear on the middle forearm without active bleeding. V-shaped 2x2cm skin tear over the left elbow with FROM and no joint tenderness. Neuro/psych: awake, alert, follows commands. strength is equal and symmetrical throughout. CN II-XII intact. does not answer questions Course Course Course Narrative: This is a rapid medical exam performed by Nano Mack NP: Additional HPI, ROS, PE not included below will be deferred to primary provider. Patient is an 88 year old male presenting with head injury after unwitnessed trip and fall this am. heard patient scream immediately after fall and patient was able to get himself up off the floor. Not anticoagulated. Contusion to front of head noted. Plan: CT head and c spine Reevaluation(s) Reevaluation #1: I Keiko Rice PA-C have accepted care of the patient and signed out pending imaging, urinalysis and final disposition CT brain: CT/CT head/brain wo IV con IMPRESSION: No acute fracture, bony calvarium. No acute intracranial hemorrhage. White matter disease likely related to small vessel occlusive disease. Global cerebral atrophy. Atherosclerosis disease, intracranial. CT cervical spine: CT/CT cervical spine wo IV con IMPRESSION: Multilevel cervical spondylosis without acute fracture or trauma-related listhesis. Chronic lung abnormalities, thick-walled cystic lesions, right upper lung lobe/saccular bronchiectasis. CT abdomen and pelvis: MPRESSION: 1. No hemoperitoneum or abdominal organ injury. 2. 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 3. Moderate hydronephrosis of the left kidney. Moderate atrophy of the left kidney. CT chest:IMPRESSION: There is a mild compression fracture at T9. This is felt to most likely represent a chronic fracture but an acute fracture is not excluded. Medications Administered Discontinued Medications Generic Name Dose Route Start Last Admin Trade Name Freq PRN Reason Stop Dose Admin Iohexol 100 ml 06/09/24 18:18 06/09/24 18:18 Iohexol 350 Mg/Ml 100 Ml Infus..Btl IV 06/09/24 18:19 85 ml ONCE ONE Administration Procedures Laceration Laceration 1: Site: upper extremity Side (If applicable): left Size (cm): 3 Description: linear Depth: simple, single layer Pre-repair: irrigated extensively Skin layer closed with: other (steri strips) Laceration 2: Site: upper extremity Side (If applicable): left Description: flap and irregular Depth: simple, single layer Pre-repair: wound explored and irrigated extensively Skin layer closed with: other (steri strips) Medical Decision Making Medical Decision Making MDM Narrative: 88 yo male with history of Alzheimer's dementia, HFpEF presenting for evaluation after he fell down a set of stairs this morning. His only complaint are the skin tears on his left arm which he is picking at. He has been acting normally today per his family. No fall since last year. He has ecchymotic area on his scalp with moderate tenderness associated. He is nonfocal neurologically and seems to be at his baseline. Wound care provided to skin tears and steri-striped with DSD applied. Renal function is normal. He has acute on chronic anemia and leukocytosis (although appears chronic). UA pending CT head and cervical spine are unremarkable Trauma scans of his chest, abdomen and pelvis are pending given mechanism. Family updated on plan of care and all questions answered. signed out to josselin PA who will f/u CT scan results. Family eager to take him home. Differential Diagnosis Differential Diagnoses: The differential diagnosis associated with the presentation includes close head injury, concussion, skin tear, laceration, splenic laceration, liver laceration, spinal fracture, other traumatic injury Admission/Observation Consideration of admission/observation: Escalation of care including admission/observation considered Lab Data MDM Lab Attestation statement: I reviewed the patient's lab results. leukocytosis, anemia 06/09/24 12:47 06/09/24 12:47 Labs: Lab Results 06/09/24 06/09/24 Range/Units 12:47 19:50 WBC 14.5 H (4.8-10.8) X10*3/uL RBC 3.98 L (4.60-5.80) X10*6/uL Hgb 12.6 L (14.0-18.0) g/dl Hct 37.1 L (42.0-52.0) % MCV 93.2 (80.0-98.0) fL MCH 31.7 (27.0-33.0) pg MCHC 34.0 (31.0-36.0) g/dl RDW 12.1 (11.0-16.0) % Plt Count 265 D (160-400) X10*3/uL MPV 9.7 (9.4-12.4) fL Immature Gran % (Auto) 0.3 (0.0-0.4) % Neut % (Auto) 74.8 H (45-73) % Lymph % (Auto) 16.6 L (20-40) % Orange % (Auto) 5.5 (2-11) % Eos % (Auto) 2.5 (0-4) % Baso % (Auto) 0.3 (0-2) % Lymph # (Auto) 2.4 (1.2-4.9) X10*3/uL Orange # (Auto) 0.8 (0.1-1.2) X10*3/uL Eos # (Auto) 0.4 (0.0-0.4) X10*3/uL Baso # (Auto) 0.0 (0.0-0.2) X10*3/uL Abs Immat Gran (auto) 0.05 H (0.00-0.03) X10*3/uL Absolute Neuts (auto) 10.9 H (2.0-8.3) x10*3/uL Absolute Nucleated RBC 0.000 (0.0-0.012) X10*3/uL Nucleated RBC % (auto) 0.0 (0.0-0.2) /100WBC Sodium 140 (135-145) mmol/L Potassium 4.0 (3.3-5.1) mmol/L Chloride 104 (96-108) mmol/L Carbon Dioxide 27 (22-29) mmol/L Anion Gap 13 (12-20) BUN 19 H (9-16) mg/dL Creatinine 0.97 (0.5-1.4) mg/dL Estim Creat Clear Calc 36.5 Estimated GFR > 60 Random Glucose 118 H (60-115) mg/dL Calcium 9.4 D (8.4-10.2) mg/dL Total Bilirubin 0.5 (0.0-1.0) mg/dL AST 28 (5-37) U/L ALT 19 (0-40) U/L Alkaline Phosphatase 88 (39-117) U/L Total Protein 7.0 (6.5-8.0) g/dL Albumin 4.0 (3.5-5.0) g/dL Urine Color Yellow Urine Appearance Clear Urine pH 7.5 (5.0-9.0) Ur Specific [place] >= 1.030 H (1.005-1.025) Urine Protein Negative (Neg-Trace) mg/dL Urine Glucose (UA) Negative (Negative) mg/dL Urine Ketones Negative (Negative) mg/dL Urine Blood Negative (Negative) Urine Nitrite Negative (Negative) Ur Leukocyte Esterase Small (1+) H (Negative) Urine RBC 0-2 (0-2) /HPF Urine WBC 0-5 (0-5) /HPF Ur Squamous Epith Cells 0-2 (0-2) /HPF Urine Bacteria None Seen (None Seen) Hyaline Casts 0-2 (0-2) /LPF Independent Interpretation I performed an independent interpretation of an: CT Scan Interpretation: CT head without acute bleed or edema EKG with normal sinus rhythm, HR 63 bpm, t-wave inversions in leads I, V1 Radiology Impression Discussion of test interpretation with radiology: I have reviewed the radiologist's reading. Radiologist Impression: CT/CT head/brain wo IV con IMPRESSION: No acute fracture, bony calvarium. No acute intracranial hemorrhage. White matter disease likely related to small vessel occlusive disease. Global cerebral atrophy. Atherosclerosis disease, intracranial. CT/CT cervical spine wo IV con IMPRESSION: Multilevel cervical spondylosis without acute fracture or trauma-related listhesis. Chronic lung abnormalities, thick-walled cystic lesions, right upper lung lobe/saccular bronchiectasis. Independent Historian Clinical information obtained from an independent historian. History obtained from or confirmed by: Other (adult daughter at the bedside) External Record Review External record reviewed: Prior outpatient radiology Prescription Management I considered prescription management with: Pain Medication and Antibiotic Chronic Conditions Patient?s care impacted by: Other (alzheimer's dementia) Critical Care Time Critical Care Time Critical Care Time: No Discharge Plan Discharge Clinical Impression: Multiple skin tears Fall down stairs Qualifiers: Encounter type: initial encounter Qualified Code(s): W10.8XXA - Fall (on) (from) other stairs and steps, initial encounter Patient Disposition: Home, Self-Care Instructions: Fall Prevention for Older Adults (ED), Skin Tear (ED) Additional Instructions: steri-strips were used to approximate the wound edges allow them to fall off on their own. when the edges start to fray, just trim them, do not peel them off keep wounds clean and covered. change the dressings daily The CT scan of your brain and cervical spine were negative for acute injury. There were no acute intra-abdominal injuries, there were no acute injuries of the chest. You were incidentally found to have an old compression fracture of 1 of your thoracic vertebrae,T9.... The urine is not infected Follow up with your primary care provider next week. Prescriptions: No Action melatonin 5 mg tablet 1 tab PO BEDTIME PRN (Reason: Sleep) amlodipine 10 mg tablet 1 tab PO DAILY Qty: 30 0RF lisinopril 5 mg tablet 1 tab PO DAILY Qty: 30 0RF Interventions: ED Discharge Assessment Last Done: 06/09/24 20:50 Discharge Date/Time: 06/09/24 20:50 Print Language: Italian
--- NOTE | 2024-06-09 12:33 | ECG_ITS ---
Test Reason : fall Blood Pressure : */* mmHG Vent. Rate : 63 BPM Atrial Rate : 63 BPM P-R Int : 164 ms QRS Dur : 72 ms QT Int : 406 ms P-R-T Axes : 74 10 129 degrees QTcB Int : 415 ms Normal sinus rhythm ST & T wave abnormality, consider lateral ischemia Abnormal ECG When compared with ECG of 23-Dec-2021 15:48, Premature ventricular complexes are no longer Present T wave inversion now evident in Lateral leads Referred By: Janell Mack Electronically Signed By: SANDRO JACKSON MD
[2024-06-09 12:52] LABS: MANUAL DIFF FLAG NO
[2024-06-09 12:55] LABS: Basophils Percent Auto 0.3 % (0-2); Eosinophils Absolute Auto 0.4 X10*3/uL (0.0-0.4); Eosinophils Percent Auto 2.5 % (0-4); Hematocrit 37.1 % (42.0-52.0); Hemoglobin 12.6 g/dl (14.0-18.0); Imm Gran Abs Auto 0.05 X10*3/uL (0.00-0.03); Imm Gran Pct Auto 0.3 % (0.0-0.4); Lymphocytes Absolute Auto 2.4 X10*3/uL (1.2-4.9); Lymphocytes Percent Auto 16.6 % (20-40); Mean Corpuscular Hemoglobin 31.7 pg (27.0-33.0); Mean Corpuscular Volume 93.2 fL (80.0-98.0); Mean Platelet Volume 9.7 fL (9.4-12.4); Monocytes Absolute Auto 0.8 X10*3/uL (0.1-1.2); Monocytes Percent Auto 5.5 % (2-11); Neutrophils Absolute Auto 10.9 x10*3/uL (2.0-8.3); Neutrophils Percent Auto 74.8 % (45-73); Platelet Count 265 X10*3/uL (160-400); Red Blood Count 3.98 X10*6/uL (4.60-5.80); Red Cell Distribution Width 12.1 % (11.0-16.0); White Blood Count 14.5 X10*3/uL (4.8-10.8)
[2024-06-09 13:13] LABS: Alanine Aminotransferase 19 U/L (0-40); Alkaline Phosphatase 88 U/L (39-117); Anion Gap 13 (12-20); Aspartate Amino Transferase 28 U/L (5-37); Bilirubin Total 0.5 mg/dL (0.0-1.0); Blood Urea Nitrogen 19 mg/dL (9-16); Calcium 9.4 mg/dL (8.4-10.2); Carbon Dioxide 27 mmol/L (22-29); Chloride 104 mmol/L (96-108); Creatinine Clr Calc Pharmacy 36.5; Estimated Glomerular Filt Rate > 60; Glucose Random 118 mg/dL (60-115); Sodium 140 mmol/L (135-145)
[2024-06-09 16:01] VITALS: BP 154/59; PULSE 64; RESP 18; TEMP 36.5; O2SAT 96
--- OUTSIDE RECORDS SUMMARY | 2024-06-09 16:34 | XMS_ITS | Clinical Summary ---
Author Organization [facility] ity Address [address] [place] [address] Care Team Providers Care Bridge/Structure Inspection Team Leader Name Role Phone Unavailable Primary Care Provider Unavailabl e Social History Tobacco Use Types Packs/Day Years Used Date Smoking Tobacco: Never Assessed Sex and Gender Information Value Date Recorded Sex Assigned at Not on file Legal Sex Male 3:44 PM EDT Gender Identity Not on file Sexual Orientation Not on file Plan of Treatment Health Maintenance Due Date Last Done Comments DTaP,Tdap,and Td Vaccines (1 - Tdap) 1954 Pneumococcal Vaccine: 50+ Ye ars (1 of 1 - PCV) 1984 Zoster Vaccines (1 of 2) 1984 RSV Immunization Adult Patie nts (1 - 1-dose 75+ series) 2009 COVID-19 Vaccine ( - 2023-2 5 season) 2023 Cholesterol Screening (Lipid Panel) 12/20/2023 Depression Screening 12/20/2023 Falls Risk Assessment 12/20/2023 Social Influencers of Health Screening 12/20/2023 Influenza Vaccine (Season Ended) 2024 HIB Vaccines Aged Out No longer eligi ble based on patient's age to complete this topic HPV Vaccines Aged Out No longer eligi ble based on patient's age to complete this topic Hepatitis A Vaccines Aged Out No long er eligible based on patient's age to complete this topic Hepatitis B Vaccines Aged Out No long er eligible based on patient's age to complete this topic IPV Vaccines Aged Out No longer eligi ble based on patient's age to complete this topic MMR Vaccines Aged Out No longer eligi ble based on patient's age to complete this topic Meningococcal ACWY Vaccine Aged Out N o longer eligible based on patient's age to complete this topic Meningococcal B Vaccine Aged Out No l onger eligible based on patient's age to complete this topic RSV Immunization Patients Un ayaz 20 months Aged Out No longer eligible b ased on patient's age to complete this topic Varicella Vaccines Aged Out No longer eligible based on patient's age to complete this topic
[2024-06-09] MEDS: iohexoL 350 MG/ML 100 ML INFUS..BTL IV (18:18)
[2024-06-09 19:03] VITALS: BP 143/67; PULSE 63; RESP 18; TEMP 36.6; O2SAT 97
[2024-06-09 19:58] LABS: Appearance Urine Clear; Color Urine Yellow; Glucose Urine UA Negative (Negative); Leukocyte Esterase Urine Small (1+) (Negative); Nitrite Urine Negative (Negative); PH 7.5 (5.0-9.0); Specific Gravity - Urine >= 1.030 (1.005-1.025); UMIC TRIGGER UACC YES; Urine Blood Negative (Negative); Urine Ketones Negative (Negative); Urine Protein Negative (Neg-Trace)
[2024-06-09 20:11] VITALS: BP 139/73; PULSE 70; RESP 16; TEMP 36.6; O2SAT 100
[2024-06-09 20:11] LABS: Bacteria Urine None Seen (None Seen); Hyaline Casts Urine 0-2 /LPF (0-2); RBC Urine 0-2 /HPF (0-2); Squamous Epithelial Cell Urine 0-2 /HPF (0-2); UACC Culture Trigger YES; WBC Urine 0-5 /HPF (0-5)
[2024-06-09 20:50] VITALS: BP 139/73; PULSE 70; RESP 16; TEMP 36.6; O2SAT 100
== END 2024-06-09 20:50 | disposition home or self-care (01) ==
PROVIDERS: Physician Assistant; Registered Nurse Emergency; Emergency Provider Emergency Medicine
DX: S51.812A Laceration without foreign body of left forearm, initial encounter (principal); S51.012A Laceration without foreign body of left elbow, initial encounter; W10.8XXA Fall (on) (from) other stairs and steps, initial encounter; N39.0 Urinary tract infection, site not specified; B95.2 Enterococcus as the cause of diseases classified elsewhere; I11.0 Hypertensive heart disease with heart failure; I50.32 Chronic diastolic (congestive) heart failure; G30.9 Alzheimer's disease, unspecified; J44.9 Chronic obstructive pulmonary disease, unspecified; Y93.89 Activity, other specified; Y92.018 Other place in single-family (private) house as the place of occurrence of the external cause; Y99.9 Unspecified external cause status
CPT/HCPCS: 36415; 70450; 71260; 72125; 74177; 80053; 81001; 85025; 87086; 87088; 87186; 93005; 99284; 99285; Q9967

== ENCOUNTER → 2024-06-09 12:33 | Outpatient (BNV) | payer OTHER, SELFPAY | PROVIDERS: Emergency Provider Emergency Medicine; Visit Provider Internal Medicine Cardiovascular Disease | DX: R94.31 Abnormal electrocardiogram [ECG] [EKG] (principal); W19.XXXA Unspecified fall, initial encounter | CPT/HCPCS: 93010 ==

== ENCOUNTER → 2024-06-09 15:08 | Outpatient (BNV) | payer OTHER, SELFPAY | PROVIDERS: Emergency Provider Emergency Medicine; Visit Provider Radiology Diagnostic Radiology | DX: N26.1 Atrophy of kidney (terminal) (principal); N13.30 Unspecified hydronephrosis; S22.080A Wedge compression fracture of T11-T12 vertebra, initial encounter for closed fracture; G31.9 Degenerative disease of nervous system, unspecified; W19.XXXA Unspecified fall, initial encounter; R91.8 Other nonspecific abnormal finding of lung field | CPT/HCPCS: 70450; 71260; 72125; 74177 ==